=== PATIENT | female | born 1995 | race Hispanic/Latino ===

== ENCOUNTER 2020-06-17 06:21 | Inpatient (IN) | payer BC ==
[~2020-06-17] VITALS: Ht 162.6 cm; Wt 84.8 kg
[2020-06-17] MEDS ORDERED: EPHEDRINE SULFATE 50 MG/ML AMPULE IVP PRN (06:45)
[2020-06-17] MEDS ORDERED: MEPERIDINE-PF 50 MG/ML SYG IVP PRN (06:45)
[2020-06-17] MEDS ORDERED: LACTATED RINGERS 1000ML 1,000 ML IV PRN (06:45)
[2020-06-17] MEDS ORDERED: ROPIVACAINE 0.2% 100ML VIAL 100 ML EP SCH (06:45)
[2020-06-17] MEDS ORDERED: NALOXONE HCL 0.4 MG/1 ML ML IV PRN (06:45)
[2020-06-17] MEDS ORDERED: LACTATED RINGERS 500 ML 500 ML IV PRN (06:45)
[2020-06-17] MEDS ORDERED: PROMETHAZINE HCL 25 MG/ML 1ML AMPULE IM PRN ×2 (06:45→23:15)
[2020-06-17] MEDS ORDERED: OXYTOCIN-LR 20 UNITS/1000 ML 1,000 ML IV SCH ×2 (07:00→21:00)
[2020-06-17 07:27] LABS: APPEARANCE,URINE Turbid (CLEAR); BILIRUBIN,URINE Negative (NEGATIVE); COLOR,URINE Yellow (YELLOW); GLUCOSE, URINE (UA) Negative (NEGATIVE); KETONES,URINE Negative (NEGATIVE); LEUKOCYTE ESTERASE ,URINE Large (NEGATIVE); NITRATE,URINE Negative (NEGATIVE); OCCULT BLOOD,URINE Small (NEGATIVE); PH,URINE 7.5 (5.0-8.0); PROTEIN,URINE Negative (NEGATIVE); UROBILINOGEN,URINE 0.2 mg/dL (0.2-1.0)
[2020-06-17 07:42] LABS: HEMATOCRIT 30.2 % (36-48); MEAN CORPUSCULAR HEMOGLOBIN 25.3 pg (27.0-33.0); MEAN CORPUSCULAR HGB CONC 32.1 g/dL (32.0-36.0); MEAN CORPUSCULAR VOLUME 78.6 fL (79-99); RED BLOOD CELL COUNT(AUTO) 3.84 MIL/uL (4.00-5.50); RED CELL DISTRIBUTION WIDTH 14.4 % (11.0-15.5)
[2020-06-17 08:48] LABS: BACTERIA,URINE Many /HPF (None Seen); WBC,URINE TNTC /HPF (0-1)
[2020-06-17 19:45] VITALS: BP 120/78
[2020-06-17] MEDS ORDERED: ONDANSETRON 4MG INJ ONE ×2 (20:53→22:16)
[2020-06-17] MEDS ORDERED: ACETAMINOPHEN 500 MG TABLET ONE ×2 (20:53→20:54)
[2020-06-17] MEDS ORDERED: LACTATED RINGERS 1000ML 1,000 ML IV SCH (21:45)
[2020-06-17] MEDS ORDERED: CEFAZOLIN SODIUM 1 GM VIAL IVP PRN (21:45)
[2020-06-17] MEDS ORDERED: ACETAMINOPHEN 500 MG TABLET PO SCH (21:55)
[2020-06-17] MEDS ORDERED: ONDANSETRON 4MG INJ IVP SCH (21:55)
[2020-06-17] MEDS ORDERED: LIDOCAINE 2%-EPI 1:200,000 20 ML VIAL IJ ONE (22:11)
[2020-06-17] MEDS ORDERED: DEXAMETHASONE SOD PHOSPHATE 10MG/ML 1ML VIAL ONE (22:13)
[2020-06-17] MEDS ORDERED: PHENYLEPHRINE HCL 10 MG/ML 1ML VIAL IV ONE (22:13)
[2020-06-17] MEDS ORDERED: OXYTOCIN 10 UNIT/1ML 10ML VIAL ONE (22:13)
[2020-06-17] MEDS ORDERED: EPHEDRINE SULFATE 50 MG/ML AMPULE ONE (22:16)
[2020-06-17] MEDS ORDERED: SUCCINYLCHOLINE CHLORIDE 20 MG/ML 10 ML VIAL ONE (22:29)
[2020-06-17] MEDS ORDERED: LIDOCAINE PF 100MG/5ML (2%) SYRINGE 5ML ONE (22:29)
[2020-06-17] MEDS ORDERED: PROPOFOL 10 MG/ML 20ML VIAL IV ONE (22:30)
[2020-06-17] MEDS ORDERED: FENTANYL CITRATE PF 50 MCG/1 ML 5ML AMP IV ONE (22:30)
[2020-06-17] MEDS ORDERED: METHYLERGONOVINE MALEATE 0.2 MG/1 ML ML IM ONE (22:49)
[2020-06-17] MEDS ORDERED: MEPERIDINE-PF 50 MG/ML SYG ONE (22:57)
[2020-06-17] MEDS ORDERED: DEXTROSE 5 %-0.45 % NACL 1,000 ML IV PRN (23:15)
[2020-06-17] MEDS ORDERED: OXYTOCIN-LR 20 UNITS/1000 ML 1,000 ML IV PRN (23:15)
[2020-06-17] MEDS ORDERED: MEPERIDINE-PF 75 MG/ML SYG IM PRN (23:15)
[2020-06-17] MEDS ORDERED: 0.9%NACL 10ML VIAL IVP PRN (23:15)
[2020-06-18] VITALS (7 sets, daily range): BP systolic 93–127; BP diastolic 46–84
[2020-06-18] MEDS ORDERED: IBUPROFEN 800 MG TAB ONE (01:58)
[2020-06-18] MEDS ORDERED: IRON (05:36)
[2020-06-18] MEDS ORDERED: PREN1COM14 PO (05:36)
[2020-06-18 06:54] LABS: HEMATOCRIT 31.4 % (36-48); MEAN CORPUSCULAR HEMOGLOBIN 25.5 pg (27.0-33.0); MEAN CORPUSCULAR HGB CONC 32.2 g/dL (32.0-36.0); MEAN CORPUSCULAR VOLUME 79.3 fL (79-99); RED BLOOD CELL COUNT(AUTO) 3.96 MIL/uL (4.00-5.50); RED CELL DISTRIBUTION WIDTH 14.1 % (11.0-15.5); WHITE BLOOD COUNT (AUTO) 17.7 K/uL (4.8-10.8)
[2020-06-18] MEDS ORDERED: ACETAMINOPHEN 500 MG TABLET PO PRN (07:45)
[2020-06-18] MEDS ORDERED: LANOLIN 30GM OINTMENT TP PRN (07:45)
[2020-06-18] MEDS ORDERED: DIPH,PERTUSS(ACELL),TET VAC/PF 0.5 ML VIAL IM SCH (07:45)
[2020-06-18] MEDS ORDERED: BISACODYL 10 MG SUPP.RECT RC PRN (07:45)
[2020-06-18] MEDS ORDERED: ACETAMINOPHEN WITH CODEINE 1 TAB TAB PO PRN (07:45)
[2020-06-18] MEDS: SIMETHICONE 80 MG TAB.CHEW PO PRN ×2 (08:33→20:17)
[2020-06-18] MEDS: DOCUSATE SODIUM 100 MG CAP PO SCH ×2 (08:33→20:17)
[2020-06-18] MEDS: IBUPROFEN 800 MG TAB PO SCH ×3 (08:33→23:50)
[2020-06-18 09:14] LABS: HEPATITIS Bs ANTIGEN SCREEN P Negative (Negative)
[2020-06-18] MEDS: HYDROCODONE/ACETAMINOPHEN 5/325 MG TAB PO PRN ×2 (09:35→21:17)
[2020-06-18] MEDS ORDERED: IBUPROFEN 800 MG TAB PO SCH (23:15)
[2020-06-19] MEDS: IBUPROFEN 800 MG TAB PO SCH ×2 (00:38→07:55)
[2020-06-19 03:35] VITALS: BP 106/62
[2020-06-19 07:23] VITALS: BP 98/65
[2020-06-19] MEDS: SIMETHICONE 80 MG TAB.CHEW PO PRN (07:54)
[2020-06-19] MEDS: DOCUSATE SODIUM 100 MG CAP PO SCH (07:54)
== END 2020-06-19 10:40 | disposition home or self-care (01) | DRG 788 ==
LOC: LDH 06:21 → WSH 06-18 02:00
PROVIDERS: ADMIT Specialist; ATTEND Specialist
PROC: 3E033VJ Introduction of Other Hormone into Peripheral Vein, Percutaneous Approach (ICD-10-PCS; 2020-06-17)
PROC: 10D00Z1 Extraction of Products of Conception, Low, Open Approach (ICD-10-PCS; principal; 2020-06-17 22:13)
PROC: 3E0234Z Introduction of Serum, Toxoid and Vaccine into Muscle, Percutaneous Approach (ICD-10-PCS; 2020-06-18)
DX: O62.2 Other uterine inertia (principal); Z3A.39 39 weeks gestation of pregnancy; Z37.0 Single live birth; Z23 Encounter for immunization
CPT/HCPCS: 36415; 59510; 81001; 85027; 86592; 86850; 86900; 86901; 87088; 87340; A4314; G0378; J0330; J0690; J1100; J2001; J2175; J2210; J2370; J2405; J2590; J2704; J2795; J3010; J3490